=== PATIENT | female | born 1930 | race African-American/Black ===

== ENCOUNTER 2020-05-06 15:51 | Emergency (ER) | payer SELFPAY ==
[~2020-05-06] VITALS: Ht 152.4 cm; Wt 43.0 kg
[2020-05-06 15:56] VITALS: BP 143/68
== END 2020-05-06 16:56 | disposition home or self-care (01) ==
LOC: ER 15:51
DX: S00.83XA Contusion of other part of head, initial encounter (principal); W01.0XXA Fall on same level from slipping, tripping and stumbling without subsequent striking against object, initial encounter; Y93.01 Activity, walking, marching and hiking; Y92.89 Other specified places as the place of occurrence of the external cause; Y99.8 Other external cause status
CPT/HCPCS: 99283

== ENCOUNTER 2021-04-14 18:19 | Inpatient (IN) | payer OTHER, MEDICARE, MEDICAID ==
[~2021-04-14] VITALS: Ht 165.1 cm; Wt 39.0 kg
[2021-04-14] MEDS ORDERED: SODIUM CHLORIDE 0.9% 1,000 ML IV ONE (19:00)
[2021-04-14] MEDS ORDERED: DEXTROSE 50% WATER 50ML SYRINGE IV ONE (19:15)
[2021-04-14] MEDS ORDERED: DEXTROSE 10% WATER 500 ML IV ONE (19:45)
[2021-04-14 20:16] LABS: BASOPHILS % 0.3 % (0.0-2.0); EOSINOPHILS % 0.1 % (0.0-5.0); HEMATOCRIT. 45.5 % (36.0-48.0); HEMOGLOBIN. 14.4 g/dL (12.0-16.0); MEAN CORPUSCULAR HEMOGLOBIN 28.2 pg (28.0-32.0); MEAN CORPUSCULAR VOLUME 89.1 fL (81.0-99.0); MEAN PLATELET VOLUME 9.9 fl (7.4-10.4); MONOCYTES % 4.9 % (2.0-8.0); NEUTROPHILS % 85.7 % (40.0-76.0); PLATELET 117 x1000/uL (130-400); RED BLOOD CELL COUNT 5.11 mill/uL (4.2-5.4); RED CELL DISTRIBUTION WIDTH 20.9 % (11.6-14.6)
[2021-04-14 20:22] LABS: CHLORIDE 108 mEq/L (98-107)
[2021-04-14 20:23] LABS: INR 1.1; PROTHROMBIN TIME 11.7 sec (9.6-11.0)
[2021-04-14 21:19] LABS: CLARITY URINE TURBID (CLEAR); COLOR URINE ORANGE (YELLOW); KETONES URINE NEGATIVE (NEGATIVE); LEUKOCYTE ESTERASE URINE 3+ (NEGATIVE); NITRITE URINE POSITIVE (NEGATIVE); OCCULT BLOOD URINE 3+ (NEGATIVE); PH URINE >=9.0 (4.5-8.0); PROTEIN URINE 3+ (NEGATIVE); SPECIFIC GRAVITY URINE 1.023 (1.005-1.030); UROBILINOGEN URINE 0.2 E.U./dL (0.2-1.0)
[2021-04-14] MEDS ORDERED: CEFTRIAXONE 1 G PREMIX 50 ML IV ONE (21:30)
[2021-04-15] MEDS ORDERED: ONDANSETRON HCL 4MG/2ML INJ IV PRN (08:30)
[2021-04-15] MEDS ORDERED: ACETAMINOPHEN 325MG TABLET PO PRN (08:30)
[2021-04-15] MEDS ORDERED: DEXTROSE 50% WATER 50ML SYRINGE IV NR (17:30)
[2021-04-15] MEDS: DEXT 5%/0.45% NACL 1000ML 1,000 ML IV SCH (18:16)
[2021-04-15] MEDS: CEFTRIAXONE 1,000 MG in DEXTROSE 5% WATER 50 ML IV SCH (21:58)
[2021-04-16] VITALS (8 sets, daily range): BP systolic 109–129; BP diastolic 50–76
[2021-04-16] MEDS: DEXT 5%/0.45% NACL 1000ML 1,000 ML IV SCH ×2 (06:39→20:19)
[2021-04-16] MEDS: BLOOD SUGAR DIAGNOSTIC STRIP TEST SCH ×4 (06:39→20:18)
[2021-04-16 06:52] LABS: BASOPHILS % 0.3 % (0.0-2.0); EOSINOPHILS % 0.7 % (0.0-5.0); HEMATOCRIT. 34.9 % (36.0-48.0); HEMOGLOBIN. 11.2 g/dL (12.0-16.0); LYMPHOCYTES % 11.6 % (20.0-50.0); MEAN CORPUSCULAR VOLUME 86.9 fL (81.0-99.0); MEAN PLATELET VOLUME 10.6 fl (7.4-10.4); MONOCYTES % 11.7 % (2.0-8.0); NEUTROPHILS % 75.7 % (40.0-76.0); PLATELET 117 x1000/uL (130-400); RED BLOOD CELL COUNT 4.02 mill/uL (4.2-5.4); RED CELL DISTRIBUTION WIDTH 21.2 % (11.6-14.6)
[2021-04-16 07:02] LABS: CHLORIDE 110 mEq/L (98-107)
[2021-04-16] MEDS ORDERED: POTASSIUM CHLORIDE INJ 40 MEQ in DEXT 5% WATER 250 ML IV SCH (11:00)
[2021-04-16] MEDS ORDERED: POTASSIUM CHLORIDE 20MEQ TABLET SR PO NR (12:00)
[2021-04-16] MEDS: CEFTRIAXONE 1,000 MG in DEXTROSE 5% WATER 50 ML IV SCH (20:21)
[2021-04-16] MEDS ORDERED: LIDOCAINE HCL 2% JELLY 5ML TOP NR (21:00)
[2021-04-16] MEDS ORDERED: LIDOCAINE HCL 2%/EPINEPHRINE/PF 10 ML VIAL INFIL NR (21:30)
[2021-04-17] VITALS (8 sets, daily range): BP systolic 116–152; BP diastolic 56–82
[2021-04-17] MEDS: BLOOD SUGAR DIAGNOSTIC STRIP TEST SCH ×4 (06:33→20:51)
[2021-04-17 07:52] LABS: CHLORIDE 111 mEq/L (98-107)
[2021-04-17 07:54] LABS: BASOPHILS % 0.5 % (0.0-2.0); EOSINOPHILS % 0.7 % (0.0-5.0); HEMATOCRIT. 34.9 % (36.0-48.0); HEMOGLOBIN. 11.4 g/dL (12.0-16.0); MEAN CORPUSCULAR HEMOGLOBIN 28.6 pg (28.0-32.0); MEAN CORPUSCULAR VOLUME 87.7 fL (81.0-99.0); MEAN PLATELET VOLUME 9.6 fl (7.4-10.4); MONOCYTES % 12.6 % (2.0-8.0); NEUTROPHILS % 70.2 % (40.0-76.0); PLATELET 101 x1000/uL (130-400); RED BLOOD CELL COUNT 3.98 mill/uL (4.2-5.4); RED CELL DISTRIBUTION WIDTH 21.1 % (11.6-14.6)
[2021-04-17 08:01] LABS: PHOSPHORUS 1.5 mg/dL (2.5-4.9)
[2021-04-17] MEDS: DEXT 5%/0.45% NACL 1000ML 1,000 ML IV SCH ×2 (11:03→23:04)
[2021-04-17] MEDS ORDERED: POTASSIUM PHOS,M-BASIC-D-BASIC 30 MMOL in SODIUM CHLORIDE 0.9% 500 ML IV NR (12:00)
[2021-04-17] MEDS ORDERED: POTASSIUM PHOS,M-BASIC-D-BASIC 20 MMOL in DEXT 5% WATER 243.3333 ML IV ONE (15:30)
[2021-04-17] MEDS ORDERED: POTASSIUM PHOS,M-BASIC-D-BASIC 20 MMOL in DEXT 5% WATER 250 ML IV SCH (16:00)
[2021-04-17] MEDS ORDERED: SODIUM CHLORIDE 0.9% 250 ML IV ONE (16:30)
[2021-04-17] MEDS: CEFTRIAXONE 1,000 MG in DEXTROSE 5% WATER 50 ML IV SCH (20:54)
[2021-04-18] VITALS: BP 111/67
[2021-04-18 04:00] VITALS: BP 110/65
[2021-04-18] MEDS: BLOOD SUGAR DIAGNOSTIC STRIP TEST SCH ×4 (06:23→20:43)
[2021-04-18 07:29] LABS: HEMATOCRIT. 34.3 % (36.0-48.0); HEMOGLOBIN. 11.4 g/dL (12.0-16.0); MEAN CORPUSCULAR HEMOGLOBIN 28.9 pg (28.0-32.0); MEAN CORPUSCULAR VOLUME 86.9 fL (81.0-99.0); PLATELET 104 x1000/uL (130-400); RED BLOOD CELL COUNT 3.95 mill/uL (4.2-5.4); RED CELL DISTRIBUTION WIDTH 20.5 % (11.6-14.6)
[2021-04-18 07:45] LABS: CHLORIDE 111 mEq/L (98-107)
[2021-04-18 07:57] LABS: PHOSPHORUS 3.4 mg/dL (2.5-4.9)
[2021-04-18 08:00] VITALS: BP 107/79
[2021-04-18] MEDS: DEXT 5%/0.45% NACL 1000ML 1,000 ML IV SCH (11:39)
[2021-04-18 12:00] VITALS: BP 128/82
[2021-04-18 13:56] LABS: PLATELET ESTIMATE SLIGHTLY DECREASED
[2021-04-18] MEDS ORDERED: IOHEXOL-350 100 ML BOTTLE ONE (15:18)
[2021-04-18 16:00] VITALS: BP 109/60
[2021-04-18 20:00] VITALS: BP 118/78
[2021-04-18] MEDS ORDERED: CEFTRIAXONE 1,000 MG in DEXTROSE 5% WATER 50 ML IV SCH (22:00)
[2021-04-19] VITALS: BP 129/83
[2021-04-19] MEDS: DEXT 5%/0.45% NACL 1000ML 1,000 ML IV SCH (02:06)
[2021-04-19 04:00] VITALS: BP 138/75
[2021-04-19 07:39] LABS: BASOPHILS % 1.2 % (0.0-2.0); EOSINOPHILS % 0.6 % (0.0-5.0); HEMATOCRIT. 36.9 % (36.0-48.0); HEMOGLOBIN. 12.7 g/dL (12.0-16.0); LYMPHOCYTES % 21.8 % (20.0-50.0); MEAN CORPUSCULAR HEMOGLOBIN 29.8 pg (28.0-32.0); MEAN CORPUSCULAR VOLUME 86.9 fL (81.0-99.0); MEAN PLATELET VOLUME 9.6 fl (7.4-10.4); MONOCYTES % 12.7 % (2.0-8.0); NEUTROPHILS % 63.7 % (40.0-76.0); PLATELET 133 x1000/uL (130-400); RED BLOOD CELL COUNT 4.25 mill/uL (4.2-5.4); RED CELL DISTRIBUTION WIDTH 21.6 % (11.6-14.6)
[2021-04-19 07:58] LABS: CHLORIDE 108 mEq/L (98-107)
[2021-04-19 08:00] VITALS: BP 115/63
[2021-04-19] MEDS: BLOOD SUGAR DIAGNOSTIC STRIP TEST SCH ×4 (08:01→21:00)
[2021-04-19 08:03] LABS: PHOSPHORUS 2.4 mg/dL (2.5-4.9)
[2021-04-19 12:00] VITALS: BP 132/78
[2021-04-19 20:00] VITALS: BP 123/76
[2021-04-20] VITALS: BP 127/81
[2021-04-20 04:00] VITALS: BP 127/86
[2021-04-20] MEDS: BLOOD SUGAR DIAGNOSTIC STRIP TEST SCH ×4 (06:45→21:02)
[2021-04-20 08:00] VITALS: BP 130/88
[2021-04-20 12:00] VITALS: BP 135/80
[2021-04-20 16:00] VITALS: BP 124/79
[2021-04-20 20:00] VITALS: BP 137/84
[2021-04-21] VITALS: BP 125/61
[2021-04-21 04:00] VITALS: BP 119/66
[2021-04-21] MEDS: BLOOD SUGAR DIAGNOSTIC STRIP TEST SCH ×4 (07:17→21:00)
[2021-04-21 08:00] VITALS: BP 92/65
[2021-04-21 12:00] VITALS: BP 119/60
[2021-04-21 16:00] VITALS: BP 120/52
[2021-04-21 20:00] VITALS: BP 125/81
[2021-04-22] VITALS: BP 126/75
[2021-04-22 04:00] VITALS: BP 131/78
[2021-04-22] MEDS: BLOOD SUGAR DIAGNOSTIC STRIP TEST SCH ×4 (06:52→21:00)
[2021-04-22 08:00] VITALS: BP 132/72
[2021-04-22 09:07] LABS: BG BASE EXCESS -0.5 mmol/L (-2.0-2.0); BG CARBOXYHEMOGLOBIN 0.2 % (0.5-1.5); BG DEOXYHEMOGLOBIN 1.1 % (0.0-5.0); BG FRACTION INSPIRED OXYGEN 36; BG HCO3 ACT 21.8 mmol/L (22.0-26.0); BG METHEMOGLOBIN 0.1 % (0.0-1.5); BG OXYGEN SATURATION 98.9 % (92.0-98.5); BG OXYHEMOGLOBIN 98.6 % (94.0-97.0); BG PCO2 28.8 mmHg (35.0-45.0); BG PH 7.497 (7.350-7.450); BG PO2 159.5 mmHg (75.0-100.0); BG SAMPLE SITE LEFT RADIAL; BG TOTAL HEMOGLOBIN 12.2 g/dL (12.0-18.0); BG VENT MODE NASAL CANNULA
[2021-04-22] MEDS ORDERED: FUROSEMIDE 20MG/2ML VIAL IVP NR (10:00)
[2021-04-22 10:47] LABS: BASOPHILS % 0.6 % (0.0-2.0); EOSINOPHILS % 1.1 % (0.0-5.0); HEMATOCRIT. 37.7 % (36.0-48.0); HEMOGLOBIN. 12.4 g/dL (12.0-16.0); LYMPHOCYTES % 12.6 % (20.0-50.0); MEAN CORPUSCULAR HEMOGLOBIN 28.9 pg (28.0-32.0); MEAN CORPUSCULAR VOLUME 87.8 fL (81.0-99.0); MEAN PLATELET VOLUME 10.5 fl (7.4-10.4); MONOCYTES % 8.7 % (2.0-8.0); PLATELET 159 x1000/uL (130-400); RED CELL DISTRIBUTION WIDTH 21.3 % (11.6-14.6)
[2021-04-22 10:55] LABS: CHLORIDE 110 mEq/L (98-107)
[2021-04-22 12:00] VITALS: BP 137/116
[2021-04-22] MEDS ORDERED: FUROSEMIDE 20MG/2ML VIAL IVP SCH (12:30)
[2021-04-22 16:00] VITALS: BP 121/65
[2021-04-22] MEDS: FUROSEMIDE 40MG/4ML VIAL IVP SCH (17:57)
[2021-04-22 20:00] VITALS: BP 126/71
[2021-04-23] VITALS: BP 111/75
[2021-04-23 04:00] VITALS: BP 99/56
[2021-04-23 06:47] LABS: CHLORIDE 108 mEq/L (98-107)
[2021-04-23 06:48] LABS: BASOPHILS % 1.2 % (0.0-2.0); EOSINOPHILS % 2.7 % (0.0-5.0); HEMATOCRIT. 31.5 % (36.0-48.0); HEMOGLOBIN. 10.6 g/dL (12.0-16.0); LYMPHOCYTES % 19.5 % (20.0-50.0); MEAN CORPUSCULAR HEMOGLOBIN 28.9 pg (28.0-32.0); MEAN CORPUSCULAR VOLUME 86.1 fL (81.0-99.0); MONOCYTES % 12.6 % (2.0-8.0); PLATELET 161 x1000/uL (130-400); RED BLOOD CELL COUNT 3.65 mill/uL (4.2-5.4); RED CELL DISTRIBUTION WIDTH 20.7 % (11.6-14.6)
[2021-04-23] MEDS: BLOOD SUGAR DIAGNOSTIC STRIP TEST SCH ×4 (07:20→21:00)
[2021-04-23 08:00] VITALS: BP 97/55
[2021-04-23] MEDS: FUROSEMIDE 40MG/4ML VIAL IVP SCH (09:00)
[2021-04-23] MEDS ORDERED: LOSARTAN POTASSIUM 25 MG TABLET PO SCH (09:00)
[2021-04-23 12:00] VITALS: BP 112/79
[2021-04-23 16:00] VITALS: BP 127/75
[2021-04-23] MEDS: FUROSEMIDE 20MG/2ML VIAL IVP SCH (17:18)
[2021-04-23 20:00] VITALS: BP 122/88
[2021-04-24] VITALS: BP 106/55
[2021-04-24 04:00] VITALS: BP 119/60
[2021-04-24] MEDS: BLOOD SUGAR DIAGNOSTIC STRIP TEST SCH ×4 (08:10→21:00)
[2021-04-24 08:27] VITALS: BP 109/54
[2021-04-24] MEDS: FUROSEMIDE 20MG/2ML VIAL IVP SCH ×2 (09:12→17:49)
[2021-04-24 11:28] LABS: BASOPHILS % 0.9 % (0.0-2.0); EOSINOPHILS % 0.7 % (0.0-5.0); HEMATOCRIT. 33.3 % (36.0-48.0); LYMPHOCYTES % 15.4 % (20.0-50.0); MEAN CORPUSCULAR HEMOGLOBIN 28.8 pg (28.0-32.0); MEAN PLATELET VOLUME 9.6 fl (7.4-10.4); MONOCYTES % 9.4 % (2.0-8.0); NEUTROPHILS % 73.6 % (40.0-76.0); PLATELET 203 x1000/uL (130-400); RED BLOOD CELL COUNT 3.83 mill/uL (4.2-5.4); RED CELL DISTRIBUTION WIDTH 20.9 % (11.6-14.6)
[2021-04-24] MEDS: DEXT 5%/0.45% NACL 1000ML 1,000 ML IV SCH (11:44)
[2021-04-24 12:00] VITALS: BP 114/73
[2021-04-24 16:00] VITALS: BP 88/46
[2021-04-24] MEDS: PANTOPRAZOLE SODIUM 40 MG/VIAL IV SCH (17:49)
[2021-04-24 20:00] VITALS: BP 108/57
[2021-04-25] VITALS: BP 101/56
[2021-04-25 04:00] VITALS: BP 129/71
[2021-04-25 06:08] LABS: CHLORIDE 101 mEq/L (98-107)
[2021-04-25 06:15] LABS: PHOSPHORUS 2.5 mg/dL (2.5-4.9)
[2021-04-25 06:27] LABS: PROTHROMBIN TIME 11.2 sec (9.6-11.0)
[2021-04-25 06:29] LABS: BASOPHILS % 0.4 % (0.0-2.0); EOSINOPHILS % 0.9 % (0.0-5.0); HEMATOCRIT. 34.8 % (36.0-48.0); HEMOGLOBIN. 11.5 g/dL (12.0-16.0); LYMPHOCYTES % 13.6 % (20.0-50.0); MEAN CORPUSCULAR HEMOGLOBIN 28.8 pg (28.0-32.0); MEAN PLATELET VOLUME 10.2 fl (7.4-10.4); MONOCYTES % 8.8 % (2.0-8.0); NEUTROPHILS % 76.3 % (40.0-76.0); PLATELET 201 x1000/uL (130-400); RED CELL DISTRIBUTION WIDTH 20.7 % (11.6-14.6)
[2021-04-25] MEDS: BLOOD SUGAR DIAGNOSTIC STRIP TEST SCH ×4 (07:20→20:36)
[2021-04-25 08:00] VITALS: BP 114/70
[2021-04-25] MEDS: PANTOPRAZOLE SODIUM 40 MG/VIAL IV SCH ×2 (08:57→17:04)
[2021-04-25] MEDS: FUROSEMIDE 20MG/2ML VIAL IVP SCH (08:57)
[2021-04-25] MEDS ORDERED: CEFAZOLIN 1000MG PREMIX 50 ML IV SCH (11:00)
[2021-04-25 12:00] VITALS: BP 119/68
[2021-04-25] MEDS: DEXT 5%/0.45% NACL 1000ML 1,000 ML IV SCH (12:08)
[2021-04-25] MEDS ORDERED: MIDAZOLAM HCL 5 MG/5 ML VIAL ONE (13:30)
[2021-04-25] MEDS ORDERED: MIDAZOLAM HCL 2 MG/2 ML VIAL IV PRN (13:31)
[2021-04-25] MEDS ORDERED: FENTANYL CITRATE/PF 50MCG/ML 2ML VIAL ONE (13:31)
[2021-04-25 16:00] VITALS: BP 106/58
[2021-04-25 20:00] VITALS: BP 137/65
[2021-04-26] VITALS: BP 100/76
[2021-04-26 04:00] VITALS: BP 99/58
[2021-04-26] MEDS: METOCLOPRAMIDE HCL 10MG/2ML VIAL IV SCH ×3 (06:33→17:16)
[2021-04-26 06:38] LABS: CHLORIDE 104 mEq/L (98-107)
[2021-04-26] MEDS: BLOOD SUGAR DIAGNOSTIC STRIP TEST SCH ×4 (06:38→20:42)
[2021-04-26 06:43] LABS: PHOSPHORUS 2.7 mg/dL (2.5-4.9)
[2021-04-26 08:00] VITALS: BP 108/70
[2021-04-26] MEDS: FUROSEMIDE 20MG/2ML VIAL IVP SCH (09:58)
[2021-04-26] MEDS: PANTOPRAZOLE SODIUM 40 MG/VIAL IV SCH ×2 (09:58→17:16)
[2021-04-26 12:00] VITALS: BP 118/58
[2021-04-26 12:14] LABS: HEMATOCRIT. 45.6 % (36.0-48.0); MEAN CORPUSCULAR HEMOGLOBIN 28.2 pg (28.0-32.0); MEAN PLATELET VOLUME 10.1 fl (7.4-10.4); PLATELET 187 x1000/uL (130-400); RED BLOOD CELL COUNT 5.02 mill/uL (4.2-5.4)
[2021-04-26 12:16] LABS: HEMOGLOBIN. 14.1 g/dL (12.0-16.0); MEAN CORPUSCULAR VOLUME 90.8 fL (81.0-99.0)
[2021-04-26] MEDS: DEXT 5%/0.45% NACL 1000ML 1,000 ML IV SCH (12:52)
[2021-04-26] MEDS: DEXTROSE 50% WATER 50ML SYRINGE IV PRN ×3 (13:14→21:11)
[2021-04-26 14:52] LABS: PLATELET ESTIMATE NORMAL
[2021-04-26 16:00] VITALS: BP 113/65
[2021-04-26 20:00] VITALS: BP 123/62
[2021-04-27] VITALS (7 sets, daily range): BP systolic 99–129; BP diastolic 41–73
[2021-04-27] MEDS: METOCLOPRAMIDE HCL 10MG/2ML VIAL IV SCH ×5 (00:35→23:50)
[2021-04-27] MEDS: DEXTROSE 50% WATER 50ML SYRINGE IV PRN ×4 (06:45→18:56)
[2021-04-27] MEDS: BLOOD SUGAR DIAGNOSTIC STRIP TEST SCH ×4 (07:01→23:49)
[2021-04-27 08:43] LABS: PHOSPHORUS 3.2 mg/dL (2.5-4.9)
[2021-04-27] MEDS: PANTOPRAZOLE SODIUM 40 MG/VIAL IV SCH ×2 (09:40→17:29)
[2021-04-27] MEDS: FUROSEMIDE 20MG/2ML VIAL IVP SCH (09:42)
[2021-04-27] MEDS: DEXT 5%/0.45% NACL 1000ML 1,000 ML IV SCH (12:05)
[2021-04-27] MEDS ORDERED: CEFTRIAXONE 1 G PREMIX 50 ML IV SCH (13:15)
[2021-04-27] MEDS ORDERED: DEXTROSE 10% WATER 500 ML IV SCH (14:00)
[2021-04-27] MEDS: CEFTRIAXONE 1,000 MG in DEXTROSE 5% WATER 50 ML IV SCH (15:09)
[2021-04-27] MEDS ORDERED: DEXT 10% WATER 1,000 ML IV SCH (15:45)
[2021-04-27 20:30] LABS: CHLORIDE 101 mEq/L (98-107)
[2021-04-27] MEDS ORDERED: POTASSIUM CHLORIDE 20MEQ TABLET SR PO NR (21:30)
[2021-04-27] MEDS: CARVEDILOL 3.125 MG TABLET PO SCH (21:41)
[2021-04-28] VITALS (12 sets, daily range): BP systolic 92–115; BP diastolic 41–61
[2021-04-28 00:39] LABS: HEMATOCRIT. 26.9 % (36.0-48.0); HEMOGLOBIN. 9.2 g/dL (12.0-16.0); MEAN CORPUSCULAR HEMOGLOBIN 29.4 pg (28.0-32.0); MEAN CORPUSCULAR VOLUME 86.5 fL (81.0-99.0); MEAN PLATELET VOLUME 8.8 fl (7.4-10.4); PLATELET 132 x1000/uL (130-400); RED BLOOD CELL COUNT 3.11 mill/uL (4.2-5.4)
[2021-04-28 02:42] LABS: PLATELET ESTIMATE NORMAL
[2021-04-28 03:10] LABS: CLARITY URINE CLOUDY (CLEAR); COLOR URINE YELLOW (YELLOW); KETONES URINE NEGATIVE (NEGATIVE); LEUKOCYTE ESTERASE URINE 3+ (NEGATIVE); NITRITE URINE NEGATIVE (NEGATIVE); OCCULT BLOOD URINE 1+ (NEGATIVE); PH URINE 5.5 (4.5-8.0); PROTEIN URINE 1+ (NEGATIVE); SPECIFIC GRAVITY URINE 1.017 (1.005-1.030)
[2021-04-28] MEDS: BLOOD SUGAR DIAGNOSTIC STRIP TEST SCH ×3 (06:15→18:06)
[2021-04-28 06:27] LABS: HEMATOCRIT. 28.3 % (36.0-48.0); HEMOGLOBIN. 9.4 g/dL (12.0-16.0); MEAN CORPUSCULAR VOLUME 87.1 fL (81.0-99.0); MEAN PLATELET VOLUME 9.8 fl (7.4-10.4); PLATELET 138 x1000/uL (130-400); RED BLOOD CELL COUNT 3.25 mill/uL (4.2-5.4); RED CELL DISTRIBUTION WIDTH 21.6 % (11.6-14.6)
[2021-04-28 07:03] LABS: CHLORIDE 101 mEq/L (98-107)
[2021-04-28] MEDS: LISINOPRIL 2.5MG TABLET PO SCH (09:00)
[2021-04-28] MEDS: CARVEDILOL 3.125 MG TABLET PO SCH ×2 (09:00→20:33)
[2021-04-28 10:29] LABS: PLATELET ESTIMATE NORMAL
[2021-04-28] MEDS: THIAMINE HCL 100MG TABLET GT SCH (10:41)
[2021-04-28] MEDS: ASCORBIC ACID 500 MG TABLET GT SCH (10:42)
[2021-04-28] MEDS: FOLIC ACID 1MG TABLET GT SCH (10:42)
[2021-04-28] MEDS: ZINC SULFATE 220 MG ( 50 ) CAPSULE GT SCH (10:42)
[2021-04-28] MEDS: PANTOPRAZOLE SODIUM 40 MG/VIAL IV SCH ×2 (10:42→17:04)
[2021-04-28] MEDS: CEFTRIAXONE 1,000 MG in DEXTROSE 5% WATER 50 ML IV SCH (14:32)
[2021-04-29] VITALS (12 sets, daily range): BP systolic 98–145; BP diastolic 45–65
[2021-04-29] MEDS: BLOOD SUGAR DIAGNOSTIC STRIP TEST SCH ×4 (00:13→18:48)
[2021-04-29] MEDS: ZINC SULFATE 220 MG ( 50 ) CAPSULE GT SCH (08:39)
[2021-04-29] MEDS: THIAMINE HCL 100MG TABLET GT SCH (08:39)
[2021-04-29] MEDS: ASCORBIC ACID 500 MG TABLET GT SCH (08:40)
[2021-04-29] MEDS: FOLIC ACID 1MG TABLET GT SCH (08:41)
[2021-04-29] MEDS: CARVEDILOL 3.125 MG TABLET PO SCH ×2 (08:42→20:48)
[2021-04-29] MEDS: LISINOPRIL 2.5MG TABLET PO SCH (08:43)
[2021-04-29] MEDS: PANTOPRAZOLE SODIUM 40 MG/VIAL IV SCH ×2 (08:43→17:10)
[2021-04-29 11:36] LABS: HEMATOCRIT. 28.8 % (36.0-48.0); HEMOGLOBIN. 9.8 g/dL (12.0-16.0); MEAN CORPUSCULAR HEMOGLOBIN 30.1 pg (28.0-32.0); MEAN CORPUSCULAR VOLUME 88.5 fL (81.0-99.0); MEAN PLATELET VOLUME 8.8 fl (7.4-10.4); PLATELET 108 x1000/uL (130-400); RED BLOOD CELL COUNT 3.26 mill/uL (4.2-5.4)
[2021-04-29 11:37] LABS: CHLORIDE 103 mEq/L (98-107)
[2021-04-29 12:55] LABS: PLATELET ESTIMATE SLIGHTLY DECREASED
[2021-04-29] MEDS: CEFTRIAXONE 1,000 MG in DEXTROSE 5% WATER 50 ML IV SCH (14:00)
[2021-04-30] VITALS (12 sets, daily range): BP systolic 93–123; BP diastolic 32–83
[2021-04-30] MEDS: BLOOD SUGAR DIAGNOSTIC STRIP TEST SCH ×4 (00:34→18:22)
[2021-04-30] MEDS: ASCORBIC ACID 500 MG TABLET GT SCH (08:34)
[2021-04-30] MEDS: FOLIC ACID 1MG TABLET GT SCH (08:34)
[2021-04-30] MEDS: ZINC SULFATE 220 MG ( 50 ) CAPSULE GT SCH (08:34)
[2021-04-30] MEDS: PANTOPRAZOLE SODIUM 40 MG/VIAL IV SCH ×2 (08:34→17:55)
[2021-04-30] MEDS: THIAMINE HCL 100MG TABLET GT SCH (08:35)
[2021-04-30] MEDS: LISINOPRIL 2.5MG TABLET PO SCH (09:00)
[2021-04-30] MEDS: CARVEDILOL 3.125 MG TABLET PO SCH ×2 (09:00→22:17)
[2021-04-30] MEDS: CEFTRIAXONE 1,000 MG in DEXTROSE 5% WATER 50 ML IV SCH (14:06)
[2021-05-01] VITALS (13 sets, daily range): BP systolic 90–132; BP diastolic 30–80
[2021-05-01] MEDS: BLOOD SUGAR DIAGNOSTIC STRIP TEST SCH ×5 (06:00→23:56)
[2021-05-01 07:19] LABS: BASOPHILS % 0.6 % (0.0-2.0); EOSINOPHILS % 2.3 % (0.0-5.0); HEMATOCRIT. 29.8 % (36.0-48.0); LYMPHOCYTES % 10.2 % (20.0-50.0); MEAN CORPUSCULAR HEMOGLOBIN 29.2 pg (28.0-32.0); MEAN CORPUSCULAR VOLUME 87.2 fL (81.0-99.0); MEAN PLATELET VOLUME 9.2 fl (7.4-10.4); NEUTROPHILS % 75.9 % (40.0-76.0); PLATELET 169 x1000/uL (130-400); RED BLOOD CELL COUNT 3.42 mill/uL (4.2-5.4)
[2021-05-01] MEDS: ZINC SULFATE 220 MG ( 50 ) CAPSULE GT SCH (08:36)
[2021-05-01] MEDS: ASCORBIC ACID 500 MG TABLET GT SCH (08:36)
[2021-05-01] MEDS: LISINOPRIL 2.5MG TABLET PO SCH (08:41)
[2021-05-01] MEDS: PANTOPRAZOLE SODIUM 40 MG/VIAL IV SCH ×2 (08:41→18:41)
[2021-05-01] MEDS: CARVEDILOL 3.125 MG TABLET PO SCH ×2 (08:41→20:33)
[2021-05-01] MEDS: CEFTRIAXONE 1,000 MG in DEXTROSE 5% WATER 50 ML IV SCH (13:09)
[2021-05-02] VITALS (10 sets, daily range): BP systolic 103–120; BP diastolic 42–75
[2021-05-02] MEDS: BLOOD SUGAR DIAGNOSTIC STRIP TEST SCH ×3 (05:32→18:25)
[2021-05-02] MEDS: ZINC SULFATE 220 MG ( 50 ) CAPSULE GT SCH (09:00)
[2021-05-02] MEDS: ASCORBIC ACID 500 MG TABLET GT SCH (09:00)
[2021-05-02] MEDS: PANTOPRAZOLE SODIUM 40 MG/VIAL IV SCH (09:00)
[2021-05-02] MEDS: CARVEDILOL 3.125 MG TABLET PO SCH ×2 (09:01→21:00)
[2021-05-02] MEDS: LISINOPRIL 2.5MG TABLET PO SCH (09:02)
[2021-05-02] MEDS: CEFTRIAXONE 1,000 MG in DEXTROSE 5% WATER 50 ML IV SCH (13:25)
[2021-05-02] MEDS: FOLIC ACID 1MG TABLET PO SCH (14:51)
[2021-05-02] MEDS: THIAMINE HCL 100MG TABLET PO SCH (14:51)
[2021-05-02 16:12] LABS: CHLORIDE 104 mEq/L (98-107)
[2021-05-03] VITALS: BP 121/68
[2021-05-03 04:00] VITALS: BP_SYST 117
[2021-05-03] MEDS: BLOOD SUGAR DIAGNOSTIC STRIP TEST SCH ×4 (06:00→17:45)
[2021-05-03 08:00] VITALS: BP 121/41
[2021-05-03] MEDS: LISINOPRIL 2.5MG TABLET PO SCH (09:56)
[2021-05-03] MEDS: ASCORBIC ACID 500 MG TABLET GT SCH (09:56)
[2021-05-03] MEDS: THIAMINE HCL 100MG TABLET PO SCH (09:56)
[2021-05-03] MEDS: CARVEDILOL 3.125 MG TABLET PO SCH ×2 (09:56→20:50)
[2021-05-03] MEDS: ZINC SULFATE 220 MG ( 50 ) CAPSULE GT SCH (09:56)
[2021-05-03] MEDS: FOLIC ACID 1MG TABLET PO SCH (09:56)
[2021-05-03] MEDS: FAMOTIDINE 20MG/2ML VIAL IV SCH (09:57)
[2021-05-03 12:00] VITALS: BP 105/67
[2021-05-03 16:00] VITALS: BP 108/52
[2021-05-03 20:00] VITALS: BP 107/57
[2021-05-04] VITALS: BP 101/42
[2021-05-04] MEDS: BLOOD SUGAR DIAGNOSTIC STRIP TEST SCH ×4 (00:29→18:00)
[2021-05-04 04:00] VITALS: BP 126/64
[2021-05-04 08:00] VITALS: BP 105/54
[2021-05-04 08:16] LABS: BASOPHILS % 1.2 % (0.0-2.0); EOSINOPHILS % 1.6 % (0.0-5.0); HEMATOCRIT. 30.6 % (36.0-48.0); HEMOGLOBIN. 10.2 g/dL (12.0-16.0); LYMPHOCYTES % 8.8 % (20.0-50.0); MEAN CORPUSCULAR HEMOGLOBIN 29.6 pg (28.0-32.0); MEAN CORPUSCULAR VOLUME 89.1 fL (81.0-99.0); MEAN PLATELET VOLUME 9.7 fl (7.4-10.4); MONOCYTES % 8.7 % (2.0-8.0); NEUTROPHILS % 79.7 % (40.0-76.0); PLATELET 284 x1000/uL (130-400); RED BLOOD CELL COUNT 3.44 mill/uL (4.2-5.4); RED CELL DISTRIBUTION WIDTH 20.7 % (11.6-14.6)
[2021-05-04 08:27] LABS: CHLORIDE 102 mEq/L (98-107)
[2021-05-04] MEDS: ASCORBIC ACID 500 MG TABLET GT SCH (09:00)
[2021-05-04] MEDS: CARVEDILOL 3.125 MG TABLET PO SCH ×2 (09:00→21:00)
[2021-05-04] MEDS: LISINOPRIL 2.5MG TABLET PO SCH (09:00)
[2021-05-04] MEDS: ZINC SULFATE 220 MG ( 50 ) CAPSULE GT SCH (10:13)
[2021-05-04] MEDS: THIAMINE HCL 100MG TABLET PO SCH (10:13)
[2021-05-04] MEDS: FAMOTIDINE 20MG/2ML VIAL IV SCH (10:13)
[2021-05-04] MEDS: FOLIC ACID 1MG TABLET PO SCH (10:13)
[2021-05-04 12:00] VITALS: BP 113/71
[2021-05-04 16:00] VITALS: BP 111/56
[2021-05-05 04:00] VITALS: BP 116/66
[2021-05-05] MEDS: BLOOD SUGAR DIAGNOSTIC STRIP TEST SCH ×4 (06:00→18:56)
[2021-05-05 08:00] VITALS: BP 125/69
[2021-05-05] MEDS: ASCORBIC ACID 500 MG TABLET GT SCH (09:30)
[2021-05-05] MEDS: LISINOPRIL 2.5MG TABLET PO SCH (09:30)
[2021-05-05] MEDS: CARVEDILOL 3.125 MG TABLET PO SCH ×2 (09:30→21:00)
[2021-05-05] MEDS: THIAMINE HCL 100MG TABLET PO SCH (09:31)
[2021-05-05] MEDS: FOLIC ACID 1MG TABLET PO SCH (09:31)
[2021-05-05] MEDS: FAMOTIDINE 20MG TABLET PO SCH (09:31)
[2021-05-05] MEDS: ZINC SULFATE 220 MG ( 50 ) CAPSULE GT SCH (09:31)
[2021-05-05 12:00] VITALS: BP 112/67
[2021-05-05] MEDS: FUROSEMIDE 20MG TABLET PO SCH (14:44)
[2021-05-05 16:00] VITALS: BP 106/65
[2021-05-05 20:00] VITALS: BP 94/64
[2021-05-06] VITALS: BP 127/66
[2021-05-06 04:00] VITALS: BP 115/58
[2021-05-06] MEDS ORDERED: GLUCAGON,HUMAN RECOMBINANT 1MG/VIAL IM ONE (07:30)
[2021-05-06 08:00] VITALS: BP 115/57
[2021-05-06] MEDS: ZINC SULFATE 220 MG ( 50 ) CAPSULE GT SCH (08:44)
[2021-05-06] MEDS: FOLIC ACID 1MG TABLET PO SCH (08:44)
[2021-05-06] MEDS: THIAMINE HCL 100MG TABLET PO SCH (08:44)
[2021-05-06] MEDS: LISINOPRIL 2.5MG TABLET PO SCH (08:44)
[2021-05-06] MEDS: FAMOTIDINE 20MG TABLET PO SCH (08:44)
[2021-05-06] MEDS: ASCORBIC ACID 500 MG TABLET GT SCH (08:44)
[2021-05-06] MEDS: FUROSEMIDE 20MG TABLET PO SCH (08:44)
[2021-05-06] MEDS: CARVEDILOL 3.125 MG TABLET PO SCH ×2 (08:47→21:00)
[2021-05-06] MEDS ORDERED: BISACODYL 10MG SUPP PR PRN (10:30)
[2021-05-06] MEDS: DEXT 5%/0.45% NACL 1000ML 1,000 ML IV SCH (11:17)
[2021-05-06 12:00] VITALS: BP 99/42
[2021-05-06] MEDS: METOCLOPRAMIDE HCL 10MG/2ML VIAL IV SCH ×2 (12:08→18:18)
[2021-05-06] MEDS: BLOOD SUGAR DIAGNOSTIC STRIP TEST SCH ×5 (12:15→23:35)
[2021-05-06] MEDS ORDERED: LIDOCAINE HCL 1% 20ML VIAL (Pyxis) INJ ONE (14:01)
[2021-05-06 16:00] VITALS: BP 107/52
[2021-05-06 20:00] VITALS: BP 88/61
[2021-05-06] MEDS ORDERED: DEXTROSE 50% WATER 50ML SYRINGE IV PRN (23:30)
[2021-05-06] MEDS: INSULIN LISPRO 100 UNITS/ML SUBCUT SCH (23:58)
[2021-05-07] VITALS: BP 103/57
[2021-05-07] MEDS: METOCLOPRAMIDE HCL 10MG/2ML VIAL IV SCH ×5 (00:01→23:51)
[2021-05-07 04:00] VITALS: BP 123/55
[2021-05-07] MEDS: DEXT 5%/0.45% NACL 1000ML 1,000 ML IV SCH (05:45)
[2021-05-07] MEDS: BLOOD SUGAR DIAGNOSTIC STRIP TEST SCH ×4 (06:49→20:46)
[2021-05-07 07:03] LABS: CHLORIDE 99 mEq/L (98-107)
[2021-05-07 08:00] VITALS: BP 112/68
[2021-05-07] MEDS ORDERED: SODIUM POLYSTYRENE SULFONATE 15 G/60 ML BOT PO NR (09:00)
[2021-05-07 09:45] LABS: HEMATOCRIT. 29.9 % (36.0-48.0); MEAN CORPUSCULAR HEMOGLOBIN 29.8 pg (28.0-32.0); MEAN CORPUSCULAR VOLUME 88.8 fL (81.0-99.0); MEAN PLATELET VOLUME 9.6 fl (7.4-10.4); PLATELET 323 x1000/uL (130-400); RED BLOOD CELL COUNT 3.37 mill/uL (4.2-5.4); RED CELL DISTRIBUTION WIDTH 20.8 % (11.6-14.6)
[2021-05-07] MEDS: CARVEDILOL 3.125 MG TABLET PO SCH ×2 (09:47→20:45)
[2021-05-07] MEDS: FUROSEMIDE 20MG TABLET PO SCH ×2 (09:47→15:53)
[2021-05-07] MEDS: FAMOTIDINE 20MG TABLET PO SCH (09:47)
[2021-05-07] MEDS: FOLIC ACID 1MG TABLET PO SCH (09:47)
[2021-05-07] MEDS: ZINC SULFATE 220 MG ( 50 ) CAPSULE GT SCH (09:47)
[2021-05-07] MEDS: LISINOPRIL 2.5MG TABLET PO SCH (09:48)
[2021-05-07] MEDS: ASCORBIC ACID 500 MG TABLET GT SCH (09:48)
[2021-05-07] MEDS: THIAMINE HCL 100MG TABLET PO SCH (09:48)
[2021-05-07] MEDS: INSULIN LISPRO 100 UNITS/ML SUBCUT SCH ×4 (10:33→20:46)
[2021-05-07] MEDS ORDERED: FUROSEMIDE 40MG/4ML VIAL IVP NR (10:45)
[2021-05-07 12:00] VITALS: BP 117/86
[2021-05-07 14:49] LABS: PLATELET ESTIMATE NORMAL
[2021-05-07] MEDS ORDERED: PIPERACILLIN/TAZOBACTAM 3.375 G in DEXT 5% WATER 100 ML IV SCH (15:00)
[2021-05-07 16:00] VITALS: BP 130/68
[2021-05-07] MEDS: PIPERACILLIN/TAZOBACTAM 2.25 G in DEXTROSE 5% WATER 50 ML IV SCH ×2 (16:53→23:50)
[2021-05-07 20:00] VITALS: BP 112/60
[2021-05-08] VITALS: BP 135/87
[2021-05-08 04:00] VITALS: BP 138/76
[2021-05-08] MEDS: METOCLOPRAMIDE HCL 10MG/2ML VIAL IV SCH ×3 (06:09→17:21)
[2021-05-08 06:12] LABS: CHLORIDE 101 mEq/L (98-107)
[2021-05-08] MEDS: FUROSEMIDE 20MG TABLET PO SCH ×2 (06:16→17:21)
[2021-05-08 06:33] LABS: HEMATOCRIT. 27.1 % (36.0-48.0); HEMOGLOBIN. 9.3 g/dL (12.0-16.0); MEAN CORPUSCULAR HEMOGLOBIN 30.2 pg (28.0-32.0); MEAN CORPUSCULAR VOLUME 88.5 fL (81.0-99.0); MEAN PLATELET VOLUME 9.2 fl (7.4-10.4); PLATELET 353 x1000/uL (130-400); RED BLOOD CELL COUNT 3.06 mill/uL (4.2-5.4); RED CELL DISTRIBUTION WIDTH 20.5 % (11.6-14.6)
[2021-05-08] MEDS: BLOOD SUGAR DIAGNOSTIC STRIP TEST SCH ×4 (07:20→20:40)
[2021-05-08] MEDS: INSULIN LISPRO 100 UNITS/ML SUBCUT SCH ×4 (07:50→20:40)
[2021-05-08 08:00] VITALS: BP 96/52
[2021-05-08] MEDS: LISINOPRIL 2.5MG TABLET PO SCH (09:00)
[2021-05-08] MEDS: CARVEDILOL 3.125 MG TABLET PO SCH ×2 (09:00→21:55)
[2021-05-08] MEDS: PIPERACILLIN/TAZOBACTAM 2.25 G in DEXTROSE 5% WATER 50 ML IV SCH ×2 (09:11→17:21)
[2021-05-08] MEDS: ZINC SULFATE 220 MG ( 50 ) CAPSULE GT SCH (09:11)
[2021-05-08] MEDS: ASCORBIC ACID 500 MG TABLET GT SCH (09:12)
[2021-05-08] MEDS: FAMOTIDINE 20MG TABLET PO SCH (09:12)
[2021-05-08 12:00] VITALS: BP 115/58
[2021-05-08 16:00] VITALS: BP 124/63
[2021-05-08 16:56] LABS: PLATELET ESTIMATE NORMAL
[2021-05-08 20:00] VITALS: BP 115/64
[2021-05-09] VITALS: BP 111/63
[2021-05-09] MEDS: METOCLOPRAMIDE HCL 10MG/2ML VIAL IV SCH ×4 (00:05→17:51)
[2021-05-09] MEDS: PIPERACILLIN/TAZOBACTAM 2.25 G in DEXTROSE 5% WATER 50 ML IV SCH ×3 (00:05→17:51)
[2021-05-09 04:00] VITALS: BP 109/50
[2021-05-09] MEDS: BLOOD SUGAR DIAGNOSTIC STRIP TEST SCH ×4 (06:43→21:22)
[2021-05-09] MEDS: FUROSEMIDE 20MG TABLET PO SCH ×2 (06:43→17:51)
[2021-05-09] MEDS: INSULIN LISPRO 100 UNITS/ML SUBCUT SCH ×4 (06:43→21:00)
[2021-05-09 07:09] LABS: HEMATOCRIT. 25.1 % (36.0-48.0); HEMOGLOBIN. 8.5 g/dL (12.0-16.0); MEAN CORPUSCULAR HEMOGLOBIN 30.2 pg (28.0-32.0); MEAN CORPUSCULAR VOLUME 89.2 fL (81.0-99.0); MEAN PLATELET VOLUME 9.1 fl (7.4-10.4); PLATELET 369 x1000/uL (130-400); RED BLOOD CELL COUNT 2.82 mill/uL (4.2-5.4); RED CELL DISTRIBUTION WIDTH 20.6 % (11.6-14.6)
[2021-05-09 07:30] LABS: CHLORIDE 102 mEq/L (98-107)
[2021-05-09 08:00] VITALS: BP 121/53
[2021-05-09] MEDS: ZINC SULFATE 220 MG ( 50 ) CAPSULE GT SCH (11:04)
[2021-05-09] MEDS: LISINOPRIL 2.5MG TABLET PO SCH (11:04)
[2021-05-09] MEDS: FAMOTIDINE 20MG TABLET PO SCH (11:05)
[2021-05-09] MEDS: CARVEDILOL 3.125 MG TABLET PO SCH ×2 (11:05→21:27)
[2021-05-09] MEDS: ASCORBIC ACID 500 MG TABLET GT SCH (11:05)
[2021-05-09 11:31] LABS: PLATELET ESTIMATE NORMAL
[2021-05-09 12:00] VITALS: BP 112/56
[2021-05-09 16:00] VITALS: BP 130/62
[2021-05-09 20:00] VITALS: BP 128/71
[2021-05-10] VITALS: BP 100/73
[2021-05-10] MEDS: PIPERACILLIN/TAZOBACTAM 2.25 G in DEXTROSE 5% WATER 50 ML IV SCH ×3 (00:04→17:40)
[2021-05-10] MEDS: METOCLOPRAMIDE HCL 10MG/2ML VIAL IV SCH ×4 (00:05→17:40)
[2021-05-10 04:00] VITALS: BP 123/60
[2021-05-10] MEDS: FUROSEMIDE 20MG TABLET PO SCH ×2 (06:34→17:40)
[2021-05-10] MEDS: BLOOD SUGAR DIAGNOSTIC STRIP TEST SCH ×4 (06:46→21:00)
[2021-05-10] MEDS: INSULIN LISPRO 100 UNITS/ML SUBCUT SCH ×4 (06:47→21:00)
[2021-05-10] MEDS: ZINC SULFATE 220 MG ( 50 ) CAPSULE GT SCH (09:16)
[2021-05-10] MEDS: CARVEDILOL 3.125 MG TABLET PO SCH ×2 (09:16→21:00)
[2021-05-10] MEDS: ASCORBIC ACID 500 MG TABLET GT SCH (09:16)
[2021-05-10] MEDS: FAMOTIDINE 20MG TABLET PO SCH (09:16)
[2021-05-10] MEDS: LISINOPRIL 2.5MG TABLET PO SCH (09:16)
[2021-05-10 20:00] VITALS: BP 135/64
[2021-05-11] VITALS: BP 116/62
[2021-05-11] MEDS: METOCLOPRAMIDE HCL 10MG/2ML VIAL IV SCH ×4 (00:26→17:19)
[2021-05-11] MEDS: PIPERACILLIN/TAZOBACTAM 2.25 G in DEXTROSE 5% WATER 50 ML IV SCH ×3 (00:27→15:59)
[2021-05-11 04:00] VITALS: BP 141/67
[2021-05-11] MEDS: FUROSEMIDE 20MG TABLET PO SCH ×2 (05:57→17:19)
[2021-05-11] MEDS: BLOOD SUGAR DIAGNOSTIC STRIP TEST SCH ×5 (05:57→21:24)
[2021-05-11] MEDS: INSULIN LISPRO 100 UNITS/ML SUBCUT SCH ×4 (07:50→21:00)
[2021-05-11 08:00] VITALS: BP 116/70
[2021-05-11] MEDS: FAMOTIDINE 20MG TABLET PO SCH (08:51)
[2021-05-11] MEDS: CARVEDILOL 3.125 MG TABLET PO SCH ×2 (08:51→21:00)
[2021-05-11] MEDS: ZINC SULFATE 220 MG ( 50 ) CAPSULE GT SCH (08:51)
[2021-05-11] MEDS: ASCORBIC ACID 500 MG TABLET GT SCH (08:51)
[2021-05-11] MEDS: LISINOPRIL 2.5MG TABLET PO SCH (08:52)
[2021-05-11 12:00] VITALS: BP 120/60
[2021-05-11 16:00] VITALS: BP 123/70
[2021-05-11 20:00] VITALS: BP 131/55
[2021-05-11] MEDS ORDERED: RISPERIDONE 0.5MG TABLET PO SCH (21:00)
[2021-05-12] VITALS (20 sets, daily range): BP systolic 99–139; BP diastolic 31–107
[2021-05-12] MEDS: METOCLOPRAMIDE HCL 10MG/2ML VIAL IV SCH ×4 (00:10→17:15)
[2021-05-12] MEDS: PIPERACILLIN/TAZOBACTAM 2.25 G in DEXTROSE 5% WATER 50 ML IV SCH ×2 (00:11→10:03)
[2021-05-12] MEDS: FUROSEMIDE 20MG TABLET PO SCH ×2 (06:26→17:15)
[2021-05-12] MEDS: BLOOD SUGAR DIAGNOSTIC STRIP TEST SCH ×3 (06:29→17:15)
[2021-05-12 07:50] LABS: BG BASE EXCESS 3.7 mmol/L (-2.0-2.0); BG CARBOXYHEMOGLOBIN 0.3 % (0.5-1.5); BG DEOXYHEMOGLOBIN 12.8 % (0.0-5.0); BG HCO3 ACT 27.5 mmol/L (22.0-26.0); BG METHEMOGLOBIN 0.3 % (0.0-1.5); BG OXYGEN SATURATION 87.1 % (92.0-98.5); BG OXYHEMOGLOBIN 86.6 % (94.0-97.0); BG PCO2 38.2 mmHg (35.0-45.0); BG PH 7.475 (7.350-7.450); BG PO2 52.7 mmHg (75.0-100.0); BG SAMPLE SITE LEFT RADIAL; BG TOTAL HEMOGLOBIN 9.9 g/dL (12.0-18.0); BG VENT MODE MASK - SIMPLE
[2021-05-12] MEDS: INSULIN LISPRO 100 UNITS/ML SUBCUT SCH ×3 (07:50→17:27)
[2021-05-12] MEDS: FAMOTIDINE 20MG TABLET PO SCH (09:44)
[2021-05-12] MEDS: CARVEDILOL 3.125 MG TABLET PO SCH ×2 (09:45→22:08)
[2021-05-12 09:51] LABS: BASOPHILS % 0.8 % (0.0-2.0); EOSINOPHILS % 0.6 % (0.0-5.0); HEMATOCRIT. 29.2 % (36.0-48.0); HEMOGLOBIN. 9.6 g/dL (12.0-16.0); LYMPHOCYTES % 7.1 % (20.0-50.0); MEAN CORPUSCULAR HEMOGLOBIN 29.8 pg (28.0-32.0); MEAN CORPUSCULAR VOLUME 90.6 fL (81.0-99.0); MEAN PLATELET VOLUME 9.5 fl (7.4-10.4); MONOCYTES % 12.7 % (2.0-8.0); NEUTROPHILS % 78.8 % (40.0-76.0); PLATELET 407 x1000/uL (130-400); RED BLOOD CELL COUNT 3.23 mill/uL (4.2-5.4); RED CELL DISTRIBUTION WIDTH 21.7 % (11.6-14.6)
[2021-05-12 09:54] LABS: CHLORIDE 101 mEq/L (98-107)
[2021-05-12] MEDS: LISINOPRIL 2.5MG TABLET PO SCH (10:03)
[2021-05-12] MEDS ORDERED: SODIUM POLYSTYRENE SULFONATE 15 G/60 ML BOT PO SCH (11:15)
[2021-05-12 15:00] LABS: BG BASE EXCESS 6.6 mmol/L (-2.0-2.0); BG CARBOXYHEMOGLOBIN 0.3 % (0.5-1.5); BG DEOXYHEMOGLOBIN 0.7 % (0.0-5.0); BG FRACTION INSPIRED OXYGEN 60; BG HCO3 ACT 29.7 mmol/L (22.0-26.0); BG METHEMOGLOBIN 0.2 % (0.0-1.5); BG OXYGEN SATURATION 99.3 % (92.0-98.5); BG OXYHEMOGLOBIN 98.8 % (94.0-97.0); BG PCO2 36.4 mmHg (35.0-45.0); BG PO2 235.7 mmHg (75.0-100.0); BG SAMPLE SITE RIGHT BRACHIAL; BG TOTAL HEMOGLOBIN 8.9 g/dL (12.0-18.0); BG VENT MODE MASK - SIMPLE
[2021-05-12] MEDS: IPRATROPIUM/ALBUTEROL 0.5-3(2.5)MG/3ML NEB HHN SCH (20:14)
[2021-05-13] VITALS (19 sets, daily range): BP systolic 96–147; BP diastolic 42–75
[2021-05-13] MEDS: BLOOD SUGAR DIAGNOSTIC STRIP TEST SCH ×5 (00:45→23:47)
[2021-05-13] MEDS: METOCLOPRAMIDE HCL 10MG/2ML VIAL IV SCH ×5 (00:50→23:39)
[2021-05-13] MEDS: INSULIN LISPRO 100 UNITS/ML SUBCUT SCH ×5 (00:51→23:47)
[2021-05-13] MEDS: IPRATROPIUM/ALBUTEROL 0.5-3(2.5)MG/3ML NEB HHN SCH ×4 (01:13→21:04)
[2021-05-13 05:18] LABS: BASOPHILS % 0.8 % (0.0-2.0); EOSINOPHILS % 1.7 % (0.0-5.0); HEMATOCRIT. 25.8 % (36.0-48.0); HEMOGLOBIN. 8.6 g/dL (12.0-16.0); LYMPHOCYTES % 8.1 % (20.0-50.0); MEAN CORPUSCULAR HEMOGLOBIN 30.1 pg (28.0-32.0); MEAN CORPUSCULAR VOLUME 90.8 fL (81.0-99.0); MEAN PLATELET VOLUME 8.8 fl (7.4-10.4); MONOCYTES % 10.6 % (2.0-8.0); NEUTROPHILS % 78.8 % (40.0-76.0); PLATELET 369 x1000/uL (130-400); RED BLOOD CELL COUNT 2.84 mill/uL (4.2-5.4); RED CELL DISTRIBUTION WIDTH 20.8 % (11.6-14.6)
[2021-05-13 05:52] LABS: CHLORIDE 104 mEq/L (98-107)
[2021-05-13] MEDS: FUROSEMIDE 20MG TABLET PO SCH ×2 (06:22→17:45)
[2021-05-13 08:57] LABS: BG BASE EXCESS 10.8 mmol/L (-2.0-2.0); BG CARBOXYHEMOGLOBIN 0.3 % (0.5-1.5); BG DEOXYHEMOGLOBIN 1.5 % (0.0-5.0); BG FRACTION INSPIRED OXYGEN 32; BG METHEMOGLOBIN 0.4 % (0.0-1.5); BG OXYGEN SATURATION 98.5 % (92.0-98.5); BG OXYHEMOGLOBIN 97.8 % (94.0-97.0); BG PCO2 52.9 mmHg (35.0-45.0); BG PH 7.451 (7.350-7.450); BG PO2 150.8 mmHg (75.0-100.0); BG SAMPLE SITE LEFT RADIAL; BG TOTAL HEMOGLOBIN 8.5 g/dL (12.0-18.0); BG VENT MODE NASAL CANNULA
[2021-05-13] MEDS: CARVEDILOL 3.125 MG TABLET PO SCH ×2 (09:00→22:00)
[2021-05-13] MEDS: LISINOPRIL 2.5MG TABLET PO SCH (09:00)
[2021-05-13] MEDS: FAMOTIDINE 20MG TABLET PO SCH (09:07)
[2021-05-14] VITALS: BP 109/50
[2021-05-14] MEDS: IPRATROPIUM/ALBUTEROL 0.5-3(2.5)MG/3ML NEB HHN SCH ×4 (01:13→20:10)
[2021-05-14 04:00] VITALS: BP 137/62
[2021-05-14] MEDS: INSULIN LISPRO 100 UNITS/ML SUBCUT SCH ×2 (06:00→12:00)
[2021-05-14] MEDS: METOCLOPRAMIDE HCL 10MG/2ML VIAL IV SCH ×3 (06:38→17:53)
[2021-05-14] MEDS: BLOOD SUGAR DIAGNOSTIC STRIP TEST SCH ×3 (06:39→17:54)
[2021-05-14 08:00] VITALS: BP 116/51
[2021-05-14 09:06] LABS: CHLORIDE 105 mEq/L (98-107)
[2021-05-14 09:14] LABS: HEMATOCRIT. 29.6 % (36.0-48.0); HEMOGLOBIN. 9.5 g/dL (12.0-16.0); MEAN CORPUSCULAR HEMOGLOBIN 29.4 pg (28.0-32.0); MEAN CORPUSCULAR VOLUME 91.8 fL (81.0-99.0); MEAN PLATELET VOLUME 8.8 fl (7.4-10.4); PLATELET 410 x1000/uL (130-400); RED BLOOD CELL COUNT 3.22 mill/uL (4.2-5.4); RED CELL DISTRIBUTION WIDTH 21.4 % (11.6-14.6)
[2021-05-14] MEDS: LISINOPRIL 2.5MG TABLET PO SCH (10:11)
[2021-05-14] MEDS: CARVEDILOL 3.125 MG TABLET PO SCH ×2 (10:12→21:00)
[2021-05-14] MEDS: FAMOTIDINE 20MG TABLET PO SCH (10:12)
[2021-05-14] MEDS: FUROSEMIDE 20MG TABLET PO SCH ×2 (10:19→17:53)
[2021-05-14 12:00] VITALS: BP 120/60
[2021-05-14] MEDS ORDERED: LIDOCAINE HCL 1% 20ML VIAL (Pyxis) INJ INFIL NR (13:30)
[2021-05-14 14:44] LABS: PLATELET ESTIMATE SLIGHTLY INCREASED
[2021-05-14 16:00] VITALS: BP 128/70
[2021-05-14 20:00] VITALS: BP 107/69
[2021-05-15] VITALS: BP 114/48
[2021-05-15] MEDS: METOCLOPRAMIDE HCL 10MG/2ML VIAL IV SCH ×4 (00:34→17:36)
[2021-05-15] MEDS: IPRATROPIUM/ALBUTEROL 0.5-3(2.5)MG/3ML NEB HHN SCH ×4 (02:13→20:31)
[2021-05-15 04:00] VITALS: BP 122/67
[2021-05-15] MEDS: INSULIN LISPRO 100 UNITS/ML SUBCUT SCH ×4 (06:00→17:41)
[2021-05-15] MEDS: BLOOD SUGAR DIAGNOSTIC STRIP TEST SCH ×4 (06:27→17:41)
[2021-05-15 08:00] VITALS: BP 131/95
[2021-05-15] MEDS: LISINOPRIL 2.5MG TABLET PO SCH (08:44)
[2021-05-15] MEDS: FAMOTIDINE 20MG TABLET PO SCH (08:44)
[2021-05-15] MEDS: FUROSEMIDE 20MG TABLET PO SCH ×2 (08:44→17:43)
[2021-05-15] MEDS: CARVEDILOL 3.125 MG TABLET PO SCH ×2 (08:44→20:37)
[2021-05-15 12:00] VITALS: BP 120/60
[2021-05-15 16:00] VITALS: BP 129/69
[2021-05-15 20:00] VITALS: BP 127/60
[2021-05-16] VITALS: BP 122/73
[2021-05-16] MEDS: BLOOD SUGAR DIAGNOSTIC STRIP TEST SCH ×5 (00:02→23:50)
[2021-05-16] MEDS: METOCLOPRAMIDE HCL 10MG/2ML VIAL IV SCH ×5 (00:02→23:51)
[2021-05-16] MEDS: IPRATROPIUM/ALBUTEROL 0.5-3(2.5)MG/3ML NEB HHN SCH ×4 (02:38→23:10)
[2021-05-16 04:00] VITALS: BP 116/62
[2021-05-16] MEDS: INSULIN LISPRO 100 UNITS/ML SUBCUT SCH ×5 (06:00→23:51)
[2021-05-16] MEDS: FUROSEMIDE 20MG TABLET PO SCH ×2 (07:02→17:44)
[2021-05-16 08:00] VITALS: BP 106/66
[2021-05-16] MEDS: LISINOPRIL 2.5MG TABLET PO SCH (09:00)
[2021-05-16] MEDS: CARVEDILOL 3.125 MG TABLET PO SCH ×3 (09:00→21:35)
[2021-05-16] MEDS: FAMOTIDINE 20MG TABLET PO SCH (10:03)
[2021-05-16 12:00] VITALS: BP 136/94
[2021-05-16 20:00] VITALS: BP 139/81
[2021-05-17] VITALS: BP 108/68
[2021-05-17] MEDS: IPRATROPIUM/ALBUTEROL 0.5-3(2.5)MG/3ML NEB HHN SCH ×4 (01:49→21:24)
[2021-05-17 04:00] VITALS: BP 112/55
[2021-05-17] MEDS: BLOOD SUGAR DIAGNOSTIC STRIP TEST SCH ×3 (05:12→17:59)
[2021-05-17] MEDS: METOCLOPRAMIDE HCL 10MG/2ML VIAL IV SCH ×3 (05:17→17:19)
[2021-05-17] MEDS: INSULIN LISPRO 100 UNITS/ML SUBCUT SCH ×3 (05:17→17:59)
[2021-05-17] MEDS: FUROSEMIDE 20MG TABLET PO SCH ×2 (06:31→17:18)
[2021-05-17 08:00] VITALS: BP 140/74
[2021-05-17] MEDS: LISINOPRIL 2.5MG TABLET PO SCH (08:54)
[2021-05-17] MEDS: FAMOTIDINE 20MG TABLET PO SCH (08:55)
[2021-05-17] MEDS: CARVEDILOL 3.125 MG TABLET PO SCH ×2 (08:55→20:48)
[2021-05-17 12:00] VITALS: BP 116/51
[2021-05-17 16:00] VITALS: BP 126/84
[2021-05-17 20:00] VITALS: BP 147/68
[2021-05-18] VITALS: BP 113/58
[2021-05-18] MEDS: IPRATROPIUM/ALBUTEROL 0.5-3(2.5)MG/3ML NEB HHN SCH ×4 (01:23→18:00)
[2021-05-18] MEDS: METOCLOPRAMIDE HCL 10MG/2ML VIAL IV SCH ×4 (01:29→17:57)
[2021-05-18 04:00] VITALS: BP 115/66
[2021-05-18] MEDS: BLOOD SUGAR DIAGNOSTIC STRIP TEST SCH ×4 (05:57→18:21)
[2021-05-18] MEDS: INSULIN LISPRO 100 UNITS/ML SUBCUT SCH ×4 (06:00→18:36)
[2021-05-18] MEDS: FUROSEMIDE 20MG TABLET PO SCH ×2 (06:00→17:57)
[2021-05-18 08:00] VITALS: BP 110/58
[2021-05-18] MEDS: CARVEDILOL 3.125 MG TABLET PO SCH ×2 (09:00→21:28)
[2021-05-18] MEDS: FAMOTIDINE 20MG TABLET PO SCH (09:09)
[2021-05-18] MEDS: LISINOPRIL 2.5MG TABLET PO SCH (09:09)
[2021-05-18 12:00] VITALS: BP 126/73
[2021-05-18 16:00] VITALS: BP 114/59
[2021-05-18 20:00] VITALS: BP 134/66
[2021-05-19] VITALS: BP 121/69
[2021-05-19] MEDS: BLOOD SUGAR DIAGNOSTIC STRIP TEST SCH ×5 (00:44→23:59)
[2021-05-19] MEDS: METOCLOPRAMIDE HCL 10MG/2ML VIAL IV SCH ×5 (00:45→23:59)
[2021-05-19 04:00] VITALS: BP 123/70
[2021-05-19] MEDS: INSULIN LISPRO 100 UNITS/ML SUBCUT SCH ×5 (06:00→23:59)
[2021-05-19] MEDS: FUROSEMIDE 20MG TABLET PO SCH ×2 (06:21→18:29)
[2021-05-19] MEDS: IPRATROPIUM/ALBUTEROL 0.5-3(2.5)MG/3ML NEB HHN SCH ×3 (07:40→12:45)
[2021-05-19 08:00] VITALS: BP 118/67
[2021-05-19] MEDS: LISINOPRIL 2.5MG TABLET PO SCH (09:05)
[2021-05-19] MEDS: FAMOTIDINE 20MG TABLET PO SCH (09:06)
[2021-05-19] MEDS: CARVEDILOL 3.125 MG TABLET PO SCH ×2 (09:06→20:50)
[2021-05-19 12:00] VITALS: BP 124/58
[2021-05-19] MEDS ORDERED: IPRATROPIUM/ALBUTEROL 0.5-3(2.5)MG/3ML NEB HHN PRN (13:45)
[2021-05-19 16:00] VITALS: BP 128/66
[2021-05-19 20:00] VITALS: BP 102/36
[2021-05-20] VITALS: BP 120/59
[2021-05-20 04:00] VITALS: BP 122/55
[2021-05-20] MEDS: INSULIN LISPRO 100 UNITS/ML SUBCUT SCH ×4 (06:00→23:29)
[2021-05-20] MEDS: METOCLOPRAMIDE HCL 10MG/2ML VIAL IV SCH ×4 (06:23→23:13)
[2021-05-20] MEDS: FUROSEMIDE 20MG TABLET PO SCH ×2 (06:23→18:00)
[2021-05-20] MEDS: BLOOD SUGAR DIAGNOSTIC STRIP TEST SCH ×4 (06:24→23:29)
[2021-05-20 08:00] VITALS: BP 134/68
[2021-05-20] MEDS: FAMOTIDINE 20MG TABLET PO SCH (09:10)
[2021-05-20] MEDS: CARVEDILOL 3.125 MG TABLET PO SCH ×2 (09:11→21:16)
[2021-05-20] MEDS: LISINOPRIL 2.5MG TABLET PO SCH (09:14)
[2021-05-20 12:00] VITALS: BP 129/59
[2021-05-20 12:40] LABS: BG BASE EXCESS 8.1 mmol/L (-2.0-2.0); BG CARBOXYHEMOGLOBIN 0.7 % (0.5-1.5); BG DEOXYHEMOGLOBIN 3.7 % (0.0-5.0); BG FRACTION INSPIRED OXYGEN 28; BG METHEMOGLOBIN 0.2 % (0.0-1.5); BG OXYGEN SATURATION 96.3 % (92.0-98.5); BG OXYHEMOGLOBIN 95.4 % (94.0-97.0); BG PCO2 42.1 mmHg (35.0-45.0); BG PH 7.499 (7.350-7.450); BG PO2 82.3 mmHg (75.0-100.0); BG SAMPLE SITE RIGHT RADIAL; BG TOTAL HEMOGLOBIN 10.4 g/dL (12.0-18.0); BG VENT MODE NASAL CANNULA
[2021-05-20 16:00] VITALS: BP 134/82
[2021-05-20] MEDS ORDERED: FUROSEMIDE 40MG/4ML VIAL IVP NR (18:15)
[2021-05-20 21:42] LABS: BASOPHILS % 0.6 % (0.0-2.0); EOSINOPHILS % 1.9 % (0.0-5.0); HEMATOCRIT. 32.4 % (36.0-48.0); HEMOGLOBIN. 10.3 g/dL (12.0-16.0); LYMPHOCYTES % 8.3 % (20.0-50.0); MEAN CORPUSCULAR HEMOGLOBIN 29.8 pg (28.0-32.0); MEAN CORPUSCULAR VOLUME 93.5 fL (81.0-99.0); MONOCYTES % 12.7 % (2.0-8.0); NEUTROPHILS % 76.5 % (40.0-76.0); PLATELET 420 x1000/uL (130-400); RED BLOOD CELL COUNT 3.46 mill/uL (4.2-5.4); RED CELL DISTRIBUTION WIDTH 20.5 % (11.6-14.6)
[2021-05-20 21:50] LABS: CHLORIDE 107 mEq/L (98-107)
[2021-05-21] MEDS: BLOOD SUGAR DIAGNOSTIC STRIP TEST SCH ×3 (05:40→17:32)
[2021-05-21] MEDS: INSULIN LISPRO 100 UNITS/ML SUBCUT SCH ×3 (05:40→17:32)
[2021-05-21] MEDS: METOCLOPRAMIDE HCL 10MG/2ML VIAL IV SCH ×3 (05:41→17:36)
[2021-05-21] MEDS: FUROSEMIDE 20MG TABLET PO SCH ×2 (06:41→17:36)
[2021-05-21 08:00] VITALS: BP 139/66
[2021-05-21 09:30] VITALS: BP 138/78
[2021-05-21] MEDS: LISINOPRIL 2.5MG TABLET PO SCH (10:07)
[2021-05-21] MEDS: FAMOTIDINE 20MG TABLET PO SCH (10:08)
[2021-05-21] MEDS: CARVEDILOL 3.125 MG TABLET PO SCH ×2 (10:08→21:55)
[2021-05-21 12:00] VITALS: BP 117/60
[2021-05-21 16:00] VITALS: BP 133/54
[2021-05-21 20:00] VITALS: BP 120/54
[2021-05-22] VITALS: BP 117/70
[2021-05-22] MEDS: METOCLOPRAMIDE HCL 10MG/2ML VIAL IV SCH ×4 (01:13→17:57)
[2021-05-22 06:37] VITALS: BP 129/68
[2021-05-22] MEDS: FUROSEMIDE 20MG TABLET PO SCH ×2 (06:52→17:57)
[2021-05-22] MEDS: BLOOD SUGAR DIAGNOSTIC STRIP TEST SCH ×4 (06:52→17:57)
[2021-05-22] MEDS: INSULIN LISPRO 100 UNITS/ML SUBCUT SCH ×4 (07:07→17:57)
[2021-05-22 08:00] VITALS: BP 123/59
[2021-05-22] MEDS: CARVEDILOL 3.125 MG TABLET PO SCH ×2 (08:43→21:01)
[2021-05-22] MEDS: FAMOTIDINE 20MG TABLET PO SCH (08:43)
[2021-05-22] MEDS: LISINOPRIL 2.5MG TABLET PO SCH (08:43)
[2021-05-22] MEDS: DEXTROSE 50% WATER 50ML SYRINGE IV PRN (11:47)
[2021-05-22 12:00] VITALS: BP 107/53
[2021-05-22 16:00] VITALS: BP 127/71
[2021-05-22 20:00] VITALS: BP 111/55
[2021-05-23] VITALS: BP 104/44
[2021-05-23] MEDS: METOCLOPRAMIDE HCL 10MG/2ML VIAL IV SCH ×4 (00:13→17:51)
[2021-05-23] MEDS: BLOOD SUGAR DIAGNOSTIC STRIP TEST SCH ×4 (00:25→17:57)
[2021-05-23 04:00] VITALS: BP 101/53
[2021-05-23] MEDS: INSULIN LISPRO 100 UNITS/ML SUBCUT SCH ×4 (06:00→17:57)
[2021-05-23] MEDS: FUROSEMIDE 20MG TABLET PO SCH ×2 (06:15→17:51)
[2021-05-23 08:00] VITALS: BP 116/58
[2021-05-23] MEDS: FAMOTIDINE 20MG TABLET PO SCH (10:05)
[2021-05-23] MEDS: CARVEDILOL 3.125 MG TABLET PO SCH ×2 (10:05→21:16)
[2021-05-23] MEDS: LISINOPRIL 2.5MG TABLET PO SCH (10:05)
[2021-05-23 12:00] VITALS: BP 124/60
[2021-05-23] MEDS ORDERED: LIDOCAINE HCL 1% 20ML VIAL (Pyxis) INJ INFIL ONE (13:15)
[2021-05-23 20:00] VITALS: BP 130/70
[2021-05-24] VITALS: BP 108/72
[2021-05-24] MEDS: METOCLOPRAMIDE HCL 10MG/2ML VIAL IV SCH ×4 (00:37→17:27)
[2021-05-24] MEDS: BLOOD SUGAR DIAGNOSTIC STRIP TEST SCH ×4 (00:37→17:48)
[2021-05-24 04:00] VITALS: BP 112/66
[2021-05-24] MEDS: INSULIN LISPRO 100 UNITS/ML SUBCUT SCH ×4 (06:24→17:48)
[2021-05-24] MEDS: FUROSEMIDE 20MG TABLET PO SCH ×2 (06:24→17:19)
[2021-05-24 08:00] VITALS: BP 106/51
[2021-05-24] MEDS: CARVEDILOL 3.125 MG TABLET PO SCH ×2 (08:43→21:00)
[2021-05-24] MEDS: LISINOPRIL 2.5MG TABLET PO SCH (08:44)
[2021-05-24] MEDS: FAMOTIDINE 20MG TABLET PO SCH (08:47)
[2021-05-24 12:00] VITALS: BP 112/54
[2021-05-24] MEDS: DEXTROSE 50% WATER 50ML SYRINGE IV PRN (12:20)
[2021-05-24 16:00] VITALS: BP 115/55
[2021-05-24 20:00] VITALS: BP 108/52
[2021-05-25] VITALS: BP 106/52
[2021-05-25] MEDS: METOCLOPRAMIDE HCL 10MG/2ML VIAL IV SCH ×4 (01:18→17:25)
[2021-05-25 04:00] VITALS: BP 115/59
[2021-05-25] MEDS: INSULIN LISPRO 100 UNITS/ML SUBCUT SCH ×2 (06:00)
[2021-05-25] MEDS: BLOOD SUGAR DIAGNOSTIC STRIP TEST SCH ×4 (06:50→17:25)
[2021-05-25] MEDS: FUROSEMIDE 20MG TABLET PO SCH ×2 (06:50→17:25)
[2021-05-25 08:00] VITALS: BP 135/67
[2021-05-25] MEDS: FAMOTIDINE 20MG TABLET PO SCH (09:15)
[2021-05-25] MEDS: CARVEDILOL 3.125 MG TABLET PO SCH ×2 (09:16→21:49)
[2021-05-25] MEDS: LISINOPRIL 2.5MG TABLET PO SCH (09:16)
[2021-05-25 12:00] VITALS: BP 127/73
[2021-05-25 16:00] VITALS: BP 115/56
[2021-05-25 20:00] VITALS: BP 115/62
[2021-05-26] VITALS: BP 118/57
[2021-05-26] MEDS: METOCLOPRAMIDE HCL 10MG/2ML VIAL IV SCH ×5 (02:04→23:18)
[2021-05-26 04:00] VITALS: BP 128/56
[2021-05-26] MEDS: BLOOD SUGAR DIAGNOSTIC STRIP TEST SCH ×5 (06:10→23:18)
[2021-05-26] MEDS: FUROSEMIDE 20MG TABLET PO SCH ×2 (06:19→17:43)
[2021-05-26 08:00] VITALS: BP 102/55
[2021-05-26] MEDS: LISINOPRIL 2.5MG TABLET PO SCH (09:00)
[2021-05-26] MEDS: FAMOTIDINE 20MG TABLET PO SCH (09:08)
[2021-05-26 20:00] VITALS: BP 104/44
[2021-05-27] VITALS (7 sets, daily range): BP systolic 94–112; BP diastolic 42–60
[2021-05-27] MEDS: METOCLOPRAMIDE HCL 10MG/2ML VIAL IV SCH ×4 (05:31→23:55)
[2021-05-27] MEDS: BLOOD SUGAR DIAGNOSTIC STRIP TEST SCH ×4 (05:38→23:55)
[2021-05-27] MEDS: FUROSEMIDE 20MG TABLET PO SCH ×2 (07:02→17:11)
[2021-05-27] MEDS: FAMOTIDINE 20MG TABLET PO SCH (09:09)
[2021-05-27] MEDS: ACETAMINOPHEN 650MG/20.3ML UDC PO PRN (10:10)
[2021-05-27 14:48] LABS: CLARITY URINE CLEAR (CLEAR); COLOR URINE YELLOW (YELLOW); KETONES URINE NEGATIVE (NEGATIVE); LEUKOCYTE ESTERASE URINE 2+ (NEGATIVE); NITRITE URINE NEGATIVE (NEGATIVE); OCCULT BLOOD URINE 1+ (NEGATIVE); PROTEIN URINE 1+ (NEGATIVE); SPECIFIC GRAVITY URINE 1.017 (1.005-1.030)
[2021-05-27 16:51] LABS: BG BASE EXCESS 8.1 mmol/L (-2.0-2.0); BG CARBOXYHEMOGLOBIN 0.9 % (0.5-1.5); BG DEOXYHEMOGLOBIN 18.6 % (0.0-5.0); BG FRACTION INSPIRED OXYGEN 21; BG HCO3 ACT 31.4 mmol/L (22.0-26.0); BG OXYGEN SATURATION 81.2 % (92.0-98.5); BG OXYHEMOGLOBIN 80.5 % (94.0-97.0); BG PCO2 38.9 mmHg (35.0-45.0); BG PH 7.525 (7.350-7.450); BG PO2 43.4 mmHg (75.0-100.0); BG SAMPLE SITE RIGHT RADIAL; BG TOTAL HEMOGLOBIN 11.4 g/dL (12.0-18.0); BG VENT MODE ROOM AIR
[2021-05-27 21:55] LABS: HEMATOCRIT. 28.2 % (36.0-48.0); HEMOGLOBIN. 9.3 g/dL (12.0-16.0); MEAN CORPUSCULAR HEMOGLOBIN 30.1 pg (28.0-32.0); MEAN CORPUSCULAR VOLUME 90.9 fL (81.0-99.0); MEAN PLATELET VOLUME 8.9 fl (7.4-10.4); PLATELET 321 x1000/uL (130-400); RED CELL DISTRIBUTION WIDTH 19.4 % (11.6-14.6)
[2021-05-27 22:10] LABS: CHLORIDE 106 mEq/L (98-107)
[2021-05-27 23:01] LABS: PLATELET ESTIMATE NORMAL
[2021-05-28] VITALS: BP 129/53
[2021-05-28 04:00] VITALS: BP 117/62
[2021-05-28] MEDS: ACETAMINOPHEN 650MG/20.3ML UDC PO PRN (05:02)
[2021-05-28] MEDS: METOCLOPRAMIDE HCL 10MG/2ML VIAL IV SCH ×3 (05:20→17:06)
[2021-05-28] MEDS: BLOOD SUGAR DIAGNOSTIC STRIP TEST SCH ×3 (06:00→17:22)
[2021-05-28 07:23] LABS: HEMATOCRIT. 27.9 % (36.0-48.0); HEMOGLOBIN. 9.2 g/dL (12.0-16.0); MEAN CORPUSCULAR HEMOGLOBIN 30.4 pg (28.0-32.0); MEAN CORPUSCULAR VOLUME 91.9 fL (81.0-99.0); MEAN PLATELET VOLUME 8.8 fl (7.4-10.4); PLATELET 296 x1000/uL (130-400); RED BLOOD CELL COUNT 3.04 mill/uL (4.2-5.4); RED CELL DISTRIBUTION WIDTH 19.5 % (11.6-14.6)
[2021-05-28 07:32] LABS: CHLORIDE 105 mEq/L (98-107)
[2021-05-28 08:00] VITALS: BP 112/64
[2021-05-28] MEDS: FAMOTIDINE 20MG TABLET PO SCH (08:11)
[2021-05-28] MEDS: FUROSEMIDE 20MG TABLET PO SCH ×2 (08:11→17:06)
[2021-05-28 12:00] VITALS: BP 118/50
[2021-05-28 16:00] VITALS: BP 116/58
[2021-05-28] MEDS: CEFEPIME 1,000 MG in DEXTROSE 5% WATER 50 ML IV SCH (16:58)
[2021-05-28 17:39] LABS: PLATELET ESTIMATE NORMAL
[2021-05-28 20:00] VITALS: BP 113/52
[2021-05-29] VITALS: BP 110/43
[2021-05-29] MEDS: METOCLOPRAMIDE HCL 10MG/2ML VIAL IV SCH ×4 (01:10→17:26)
[2021-05-29 04:00] VITALS: BP 131/34
[2021-05-29] MEDS: CEFEPIME 1,000 MG in DEXTROSE 5% WATER 50 ML IV SCH ×2 (04:00→15:41)
[2021-05-29] MEDS: BLOOD SUGAR DIAGNOSTIC STRIP TEST SCH ×4 (06:33→17:22)
[2021-05-29] MEDS: FUROSEMIDE 20MG TABLET PO SCH ×2 (07:52→17:26)
[2021-05-29 08:00] VITALS: BP 141/61
[2021-05-29] MEDS: FAMOTIDINE 20MG TABLET PO SCH (09:56)
[2021-05-29 12:00] VITALS: BP 107/53
[2021-05-29 16:00] VITALS: BP 125/81
[2021-05-29 20:00] VITALS: BP 111/54
[2021-05-30 00:03] VITALS: BP 114/56
[2021-05-30] MEDS: BLOOD SUGAR DIAGNOSTIC STRIP TEST SCH ×5 (00:20→23:13)
[2021-05-30] MEDS: CEFEPIME 1,000 MG in DEXTROSE 5% WATER 50 ML IV SCH ×2 (03:27→17:34)
[2021-05-30 04:00] VITALS: BP 118/67
[2021-05-30] MEDS: METOCLOPRAMIDE HCL 10MG/2ML VIAL IV SCH ×5 (05:54→23:13)
[2021-05-30] MEDS: FUROSEMIDE 20MG TABLET PO SCH ×2 (05:55→17:34)
[2021-05-30 06:23] LABS: CHLORIDE 107 mEq/L (98-107)
[2021-05-30 06:25] LABS: HEMATOCRIT. 29.5 % (36.0-48.0); HEMOGLOBIN. 9.5 g/dL (12.0-16.0); MEAN CORPUSCULAR HEMOGLOBIN 29.3 pg (28.0-32.0); MEAN CORPUSCULAR VOLUME 90.8 fL (81.0-99.0); MEAN PLATELET VOLUME 9.4 fl (7.4-10.4); PLATELET 314 x1000/uL (130-400); RED BLOOD CELL COUNT 3.24 mill/uL (4.2-5.4); RED CELL DISTRIBUTION WIDTH 20.2 % (11.6-14.6)
[2021-05-30 08:00] VITALS: BP 124/68
[2021-05-30] MEDS: FAMOTIDINE 20MG TABLET PO SCH (09:35)
[2021-05-30 12:00] VITALS: BP 112/60
[2021-05-30 15:46] LABS: PLATELET ESTIMATE NORMAL
[2021-05-30 16:00] VITALS: BP 116/66
[2021-05-30] MEDS: ACETAMINOPHEN 650MG/20.3ML UDC PO PRN (17:34)
[2021-05-30 20:00] VITALS: BP 125/69
[2021-05-31] VITALS (7 sets, daily range): BP systolic 99–140; BP diastolic 52–83
[2021-05-31] MEDS: CEFEPIME 1,000 MG in DEXTROSE 5% WATER 50 ML IV SCH ×2 (03:59→16:23)
[2021-05-31] MEDS: BLOOD SUGAR DIAGNOSTIC STRIP TEST SCH ×3 (06:00→17:23)
[2021-05-31] MEDS: METOCLOPRAMIDE HCL 10MG/2ML VIAL IV SCH ×3 (06:00→17:28)
[2021-05-31] MEDS: FUROSEMIDE 20MG TABLET PO SCH ×2 (06:51→16:23)
[2021-05-31] MEDS: FAMOTIDINE 20MG TABLET PO SCH (08:42)
[2021-06-01] VITALS (7 sets, daily range): BP systolic 108–127; BP diastolic 47–83
[2021-06-01] MEDS: METOCLOPRAMIDE HCL 10MG/2ML VIAL IV SCH ×4 (00:46→17:10)
[2021-06-01] MEDS: BLOOD SUGAR DIAGNOSTIC STRIP TEST SCH ×4 (00:46→17:35)
[2021-06-01] MEDS: CEFEPIME 1,000 MG in DEXTROSE 5% WATER 50 ML IV SCH ×2 (04:44→17:10)
[2021-06-01] MEDS: FUROSEMIDE 20MG TABLET PO SCH ×2 (06:43→17:10)
[2021-06-01] MEDS: FAMOTIDINE 20MG TABLET PO SCH (08:44)
[2021-06-02] VITALS: BP 122/63
[2021-06-02] MEDS: METOCLOPRAMIDE HCL 10MG/2ML VIAL IV SCH ×5 (00:06→23:18)
[2021-06-02] MEDS: BLOOD SUGAR DIAGNOSTIC STRIP TEST SCH ×5 (00:06→23:18)
[2021-06-02 04:00] VITALS: BP 112/71
[2021-06-02] MEDS: CEFEPIME 1,000 MG in DEXTROSE 5% WATER 50 ML IV SCH (04:01)
[2021-06-02] MEDS: FUROSEMIDE 20MG TABLET PO SCH ×2 (06:19→17:54)
[2021-06-02 08:00] VITALS: BP_SYST 120; BP_SYST 131; BP_DIAS 63; BP_DIAS 83
[2021-06-02] MEDS: FAMOTIDINE 20MG TABLET PO SCH (08:35)
[2021-06-02 12:00] VITALS: BP 131/83
[2021-06-02 16:00] VITALS: BP 124/66
[2021-06-02 20:00] VITALS: BP 136/65
[2021-06-03] VITALS: BP 127/70
[2021-06-03 04:00] VITALS: BP 130/66
[2021-06-03] MEDS: BLOOD SUGAR DIAGNOSTIC STRIP TEST SCH ×3 (06:13→18:09)
[2021-06-03] MEDS: METOCLOPRAMIDE HCL 10MG/2ML VIAL IV SCH ×2 (06:13→12:28)
[2021-06-03] MEDS: FUROSEMIDE 20MG TABLET PO SCH ×2 (06:17→18:09)
[2021-06-03 06:27] LABS: CHLORIDE 108 mEq/L (98-107)
[2021-06-03 06:44] LABS: BASOPHILS % 0.9 % (0.0-2.0); EOSINOPHILS % 3.3 % (0.0-5.0); HEMATOCRIT. 30.6 % (36.0-48.0); HEMOGLOBIN. 9.7 g/dL (12.0-16.0); LYMPHOCYTES % 8.1 % (20.0-50.0); MEAN CORPUSCULAR HEMOGLOBIN 28.4 pg (28.0-32.0); MONOCYTES % 8.4 % (2.0-8.0); NEUTROPHILS % 79.3 % (40.0-76.0); PLATELET 475 x1000/uL (130-400); RED BLOOD CELL COUNT 3.41 mill/uL (4.2-5.4)
[2021-06-03 08:00] VITALS: BP 129/72
[2021-06-03 12:00] VITALS: BP 125/71
[2021-06-03 16:00] VITALS: BP 143/82
[2021-06-03 22:11] VITALS: BP 178/88
[2021-06-04] VITALS (7 sets, daily range): BP systolic 113–155; BP diastolic 58–103
[2021-06-04] MEDS: BLOOD SUGAR DIAGNOSTIC STRIP TEST SCH ×4 (00:19→18:36)
[2021-06-04] MEDS: FUROSEMIDE 20MG TABLET PO SCH (06:29)
[2021-06-05] VITALS: BP 127/65
[2021-06-05] MEDS: BLOOD SUGAR DIAGNOSTIC STRIP TEST SCH ×3 (00:59→12:20)
[2021-06-05 04:00] VITALS: BP 124/65
[2021-06-05 08:00] VITALS: BP 127/58
[2021-06-05 12:00] VITALS: BP_SYST 118; BP_DIAS 20; BP_DIAS 70
[2021-06-05 16:00] VITALS: BP 109/74
[2021-06-05 16:47] VITALS: BP 109/74
== END 2021-06-05 17:54 | DRG 710 ==
LOC: ER 18:19 → MICUSO 21:50 → EDBEDREQ 21:54 → EDBEDREQSVC 21:54 → EDBEDREQTM 21:54 → 6WST 04-15 22:46 → 6EST 04-18 17:30 → 5EST 04-27 21:29 → 6EST 05-02 16:11 → MICUSO 05-12 07:54 → 6EST 05-13 17:11
PROVIDERS: ADMIT Internal Medicine; ATTEND Internal Medicine
PROC: 0DH63UZ Insertion of Feeding Device into Stomach, Percutaneous Approach (ICD-10-PCS; principal; 2021-04-25)
PROC: 0DB78ZX Excision of Stomach, Pylorus, Via Natural or Artificial Opening Endoscopic, Diagnostic (ICD-10-PCS; 2021-04-25)
PROC: 0KBP0ZZ Excision of Left Hip Muscle, Open Approach (ICD-10-PCS; 2021-05-01)
PROC: 0KBP0ZZ Excision of Left Hip Muscle, Open Approach (ICD-10-PCS; 2021-05-01)
PROC: 0KBN0ZZ Excision of Right Hip Muscle, Open Approach (ICD-10-PCS; 2021-05-01)
PROC: 0JBM0ZZ Excision of Left Upper Leg Subcutaneous Tissue and Fascia, Open Approach (ICD-10-PCS; 2021-05-01)
PROC: B5181ZA Fluoroscopy of Superior Vena Cava using Low Osmolar Contrast, Guidance (ICD-10-PCS; 2021-05-06)
PROC: 02HV33Z Insertion of Infusion Device into Superior Vena Cava, Percutaneous Approach (ICD-10-PCS; 2021-05-06)
PROC: B548ZZA Ultrasonography of Superior Vena Cava, Guidance (ICD-10-PCS; 2021-05-06)
PROC: 0KBP0ZZ Excision of Left Hip Muscle, Open Approach (ICD-10-PCS; 2021-05-16)
PROC: 0KBP0ZZ Excision of Left Hip Muscle, Open Approach (ICD-10-PCS; 2021-05-16)
PROC: 0KBP0ZZ Excision of Left Hip Muscle, Open Approach (ICD-10-PCS; 2021-05-16)
PROC: 0KBN0ZZ Excision of Right Hip Muscle, Open Approach (ICD-10-PCS; 2021-05-16)
PROC: 0KBN0ZZ Excision of Right Hip Muscle, Open Approach (ICD-10-PCS; 2021-05-18)
PROC: 0KBP0ZZ Excision of Left Hip Muscle, Open Approach (ICD-10-PCS; 2021-05-18)
PROC: 0KBP0ZZ Excision of Left Hip Muscle, Open Approach (ICD-10-PCS; 2021-05-29)
PROC: 0KBP0ZZ Excision of Left Hip Muscle, Open Approach (ICD-10-PCS; 2021-05-29)
PROC: 0KBN0ZZ Excision of Right Hip Muscle, Open Approach (ICD-10-PCS; 2021-05-29)
PROC: 0JBM0ZZ Excision of Left Upper Leg Subcutaneous Tissue and Fascia, Open Approach (ICD-10-PCS; 2021-05-29)
PROC: 0JBM0ZZ Excision of Left Upper Leg Subcutaneous Tissue and Fascia, Open Approach (ICD-10-PCS; 2021-05-29)
DX: A41.89 Other specified sepsis (principal); J69.0 Pneumonitis due to inhalation of food and vomit; J96.01 Acute respiratory failure with hypoxia; E43 Unspecified severe protein-calorie malnutrition; G93.41 Metabolic encephalopathy; I50.23 Acute on chronic systolic (congestive) heart failure; L89.154 Pressure ulcer of sacral region, stage 4; L89.123 Pressure ulcer of left upper back, stage 3; E87.0 Hyperosmolality and hypernatremia; E83.39 Other disorders of phosphorus metabolism; I27.20 Pulmonary hypertension, unspecified; I42.9 Cardiomyopathy, unspecified; E11.649 Type 2 diabetes mellitus with hypoglycemia without coma; L89.90 Pressure ulcer of unspecified site, unspecified stage; I11.0 Hypertensive heart disease with heart failure; F03.90 Unspecified dementia, unspecified severity, without behavioral disturbance, psychotic disturbance, mood disturbance, and anxiety; K31.7 Polyp of stomach and duodenum; N39.0 Urinary tract infection, site not specified; R62.7 Adult failure to thrive; E87.6 Hypokalemia; E87.8 Other disorders of electrolyte and fluid balance, not elsewhere classified; K29.70 Gastritis, unspecified, without bleeding; K76.9 Liver disease, unspecified; E11.51 Type 2 diabetes mellitus with diabetic peripheral angiopathy without gangrene; X58.XXXA Exposure to other specified factors, initial encounter; I70.1 Atherosclerosis of renal artery; L81.9 Disorder of pigmentation, unspecified; S00.03XA Contusion of scalp, initial encounter; S30.1XXA Contusion of abdominal wall, initial encounter; Z20.822 Contact with and (suspected) exposure to COVID-19; L89.890 Pressure ulcer of other site, unstageable; R13.12 Dysphagia, oropharyngeal phase; I34.0 Nonrheumatic mitral (valve) insufficiency; L89.620 Pressure ulcer of left heel, unstageable; L89.610 Pressure ulcer of right heel, unstageable; E87.5 Hyperkalemia; D64.9 Anemia, unspecified; Y93.89 Activity, other specified; Y92.89 Other specified places as the place of occurrence of the external cause; Z78.1 Physical restraint status; Y99.8 Other external cause status; Z68.1 Body mass index [BMI] 19.9 or less, adult
CPT/HCPCS: 36415; 36600; 71045; 74018; 75635; 76937; 80048; 80053; 81003; 82040; 82375; 82805; 82947; 82962; 83735; 83880; 84100; 84132; 84134; 84145; 85025; 87077; 87426; 88305; 88312; 88313; 93005; 93306; 93923; 94640; 97162; 99291; A6261; C1725; C1893; C9113; J0690; J0692; J0696; J1610; J1815; J1940; J2250; J2543; J2765; J3010; J3480; J3490; J7030; J7040; J7060; Q9967; A4315